=== PATIENT | male | born 1990 | race Caucasian/White ===

== ENCOUNTER 2016-08-08 03:40 | Emergency (ER) | payer OTHER ==
[~2016-08-08] VITALS: Ht 165.1 cm; Wt 95.3 kg
[2016-08-08 03:40] VITALS: BP_SYST 142
[2016-08-08 04:55] VITALS: BP_SYST 142
== END 2016-08-08 04:55 ==
LOC: SED 03:40
DX: Z04.1 Encounter for examination and observation following transport accident (principal)
CPT/HCPCS: 99283